=== PATIENT | male | born 1945 | race Caucasian/White ===

== ENCOUNTER 2016-10-16 14:39 | Emergency (ER) | payer OTHER, MEDICARE ==
[2016-10-16 14:46] VITALS: BP 121/62; PULSE 78; RESP 18; TEMP 98; O2SAT 97
--- NOTE | 2016-10-16 15:28 | EDPHY ---
H & P Time Seen by Provider: 10/16/16 14:56 HPI/ROS: CHIEF COMPLAINT: Finger infection HISTORY OF PRESENT ILLNESS: 71-year-old male reports that 7 days ago he broke a ceramic plate into several large pieces. 1 of the pieces lacerated his left middle finger just at the DIP joint, on the radial aspect. Wound has been slowly healing, but the patient has also noted an area of surrounding erythema and slight swelling. No fevers. No red streaks noted. No discharge from the wound. No foreign body sensation according to the patient. He is concerned that it may be developing an infection and is not healing properly. No fever, chills, chest pain, shortness of breath, palpitations, vomiting, diarrhea, urinary complaints, headache, lightheadedness. REVIEW OF SYSTEMS: Aside from elements discussed in the HPI, a comprehensive 10-point review of systems was reviewed and is negative. PAST MEDICAL HISTORY: Patient denies any significant past medical history. SOCIAL HISTORY: . Nonsmoker. GENERAL APPEARANCE: Pleasant, alert, conversant. FOCUSED EXAM OF left hand: 2 mm healing laceration just distal to the DIP on the middle finger. 1 cm in diameter area of erythema and slight swelling. No fluctuance. No discharge noted. No lymphangitic streaks. No pain with range of motion at the DIP joint. Neurovascular exam: Good capillary refill, good distal two-point sensation. Smoking Status: Never smoked Constitutional: Initial Vital Signs Temperature (C) 36.6 C 10/16/16 14:42 Heart Rate 78 10/16/16 14:42 Respiratory Rate 18 10/16/16 14:42 Blood Pressure 121/62 H 10/16/16 14:42 O2 Sat (%) 97 10/16/16 14:42 O2 Delivery Mode Room Air Allergies/Adverse Reactions: acetaminophen [From Tylenol] Allergy (Verified 10/16/16 14:42) Home Medications: Medication Instructions Recorded Cephalexin [Keflex (RX)] 500 mg PO QID 7 Days 10/16/16 Medical Decision Making ED Course/Re-evaluation: 71-year-old gentleman with a laceration to his middle finger which occurred 7 days ago. The wound has been slowly healing. Under local anesthetic, the wound was opened with a #13 scapula No purulent discharge was obtained. Wound was dressed and patient was placed on Keflex. Differential Diagnosis: Differential diagnoses for the patient's symptom complex was considered including but not limited to wound infection, cellulitis, retained foreign body , deep space infection. Departure - Departure Disposition: Home, Routine, Self-Care Clinical Impression: Laceration Cellulitis Qualifiers: Site of cellulitis: extremity Site of cellulitis of extremity: finger Laterality: left Qualified Code(s): L03.012 - Cellulitis of left finger Condition: Good Instructions: Cellulitis (ED) Additional Instructions: Please take antibiotics as directed. Keflex 500 mg by mouth 4 times a day for 7 days. Soak the finger in water 2 to 3 times a day for the next 1-2days. Watch for signs of worsening infection including increased redness, swelling, pain, red streaks up the finger, fever, or other concerns. Referrals: MARISSA BAUER [Primary Care Provider] - As per Instructions Prescriptions: Cephalexin [Keflex (RX)] 500 mg PO QID 7 Days
== END 2016-10-16 15:35 | disposition home or self-care (01) ==
LOC: CED 14:39
PROC: 0H9GXZZ Drainage of Left Hand Skin, External Approach (ICD-10-PCS; principal; 2016-10-16)
DX: S61.213A Laceration without foreign body of left middle finger without damage to nail, initial encounter (principal); L03.012 Cellulitis of left finger; W45.8XXA Other foreign body or object entering through skin, initial encounter

== ENCOUNTER 2017-02-12 23:53 | Emergency (ER) | payer OTHER, MEDICARE ==
[2017-02-13] MEDS ORDERED: ASPIRIN 81 MG CHEWABLE TAB PO ONE (00:03)
[2017-02-13] MEDS ORDERED: NITROGLYCERIN 0.4 MG BTL SL ONE (00:04)
[2017-02-13] MEDS ORDERED: ASPIRIN 81 MG CHEWABLE TAB ONE (00:04)
--- NOTE | 2017-02-13 00:11 | CPEKG ---
Heart Rate: 83 RR Interval: 723 P-R Interval: 192 QRSD Interval: 96 QT Interval: 372 QTC Interval: 437 P [place]: -24 QRS [place]: -21 T Wave [place]: 69 EKG Severity - OTHERWISE NORMAL ECG - EKG Impression: SINUS RHYTHM EKG Impression: BORDERLINE LEFT AXIS DEVIATION Electronically Signed By: Samuel Engel 13-Feb-2017 04:48:27
[2017-02-13] MEDS ORDERED: HYOSCYAMINE SULFATE 0.125 MG TAB ONE (00:20)
[2017-02-13] MEDS ORDERED: MAG HYDROX/AL HYDROX/SIMETH 30 ML UDCUP ONE (00:20)
[2017-02-13] MEDS ORDERED: LIDOCAINE 2% VISCOUS 15 ML UDCUP ONE (00:21)
[2017-02-13] MEDS ORDERED: LIDOCAINE 2% VISCOUS 15 ML UDCUP PO ONE (00:22)
[2017-02-13] MEDS ORDERED: MAG HYDROX/AL HYDROX/SIMETH 30 ML UDCUP PO ONE (00:22)
[2017-02-13] MEDS ORDERED: HYOSCYAMINE SULFATE 0.125 MG TAB PO ONE (00:22)
--- NOTE | 2017-02-13 00:27 | EDPHY ---
H & P Stated Complaint: chest pain Time Seen by Provider: 02/13/17 00:04 HPI/ROS: CHIEF COMPLAINT: chest discomfort HISTORY OF PRESENT ILLNESS: 72-year-old male felt well until approximately 430 -5 o'clock this afternoon. He at that point developed a sharp discomfort that lasted for half an hour on the left scapula that was not related to breathing or movement. It subsided spontaneously. He has spent an hour this afternoon work in the [employer], without any exertional fatigue, pulling up some plants and using a wheelbarrow during which time he did not feel like he strained anything and felt well throughout it all. At 8:30 p.m. today he left local restaurant with a sense of discomfort in the mid chest that progressively became worse over the ensuing 4 hours. It was mild at 1st became moderately severe peaking 8/10 is now 4/10 at this point in time. It is localized to the mid sternum, does not radiate, is worse with taking a deep breath though does not bother his breathing per se as well as movement such as laying flat or twisting. Evidently getting undressed for the exam did not seem to aggravate him the discomfort was localized, did not radiate , and he did not have a chance taking aspirin prior to arrival. He describes as a tightness. Cardiac Risk Factors: DM: No HTN: No High Chol: No Smoking: No Family History: No Obesity: No SLE type illenss: No HIV: unknown PE/DVT risk factors Prior DVT/PE: No Immobilization: No Splint/Cast: No Surgery, recently: No Family history of hypercoaguable syndrome: No Unilateral leg swelling: No Obesity: No RF for Aortic Dissection: Hypertension No Known Aortic aneurysm No Bicuspid aortic Valve No Aortic Valve disease No Family Hx of aortic dieseae No Polycystic Kidney Disease No Collagen vascular disease No Aortic Regurg Murmur No Aortic instrumentation recent No Blunt trauma, recent No REVIEW OF SYSTEMS: Constitutional: No fever, no chills. Eyes: No discharge ENT: No sore throat. Cardiovascular: See above. Respiratory: No cough, shortness of breath, or wheezing. Gastrointestinal: No nausea vomiting or diarrhea. No abdominal pain. Genitourinary: No hematuria or frequency. Musculoskeletal: No back pain. Skin: No rashes. Neurological: No headache. 10 point ROS otherwise negative Source: Patient Exam Limitations: No limitations - Personal History Current Tetanus/Diphtheria Vaccine: Yes Current Tetanus Diphtheria and Acellular Pertussis (TDAP): Yes - Medical/Surgical History Hx Asthma: No Hx Chronic Respiratory Disease: No Hx Diabetes: No Hx Cardiac Disease: No Hx Renal Disease: No Hx Cirrhosis: No Hx Alcoholism: No Hx HIV/AIDS: No Hx Splenectomy or Spleen Trauma: No Other PMH: hernia/eye/colon sueg/ - Family History Significant Family History: Other (Father of leukemia, at 65. Mother age 80 of pulmonary disease) - Social History Smoking Status: Never smoked (Former pipe smoker) Alcohol Use: None Drug Use: None - Physical Exam Exam: General Appearance: Alert, no distress. Afebrile. Normal phonation. No respiratory distress. Eyes: Pupils equal and round no pallor or injection. No icterus ENT, Mouth: Mucous membranes moist. Pharynx without erythema or exudate. TM Clear. Neck: No adenopathy. Supple. No JVD. Trachea in midline. Respiratory: There are no retractions, lungs are clear to auscultation. Chest wall: Nontender to palpation. No crepitus. Not worse with twisting of the trunk shows side bending or direct palpation Cardiovascular: Regular rate and rhythm, no murmur Abdomen: Soft and nontender, no masses, bowel sounds normal. Femoral pulses equal. Neurological: Ox3. No motor weakness. Sensation intact. Gait nl. Skin: Warm and dry, no rashes. Musculoskeletal: No joint swelling. Extremities: No edema. Homans sign negative. No cords. Psychiatric: Normal affect. Patient is oriented X 3. There is no agitation Constitutional: Initial Vital Signs Heart Rate 84 02/12/17 23:57 Respiratory Rate 18 02/12/17 23:57 Blood Pressure 154/88 H 02/12/17 23:57 O2 Sat (%) 96 02/12/17 23:57 O2 Delivery Mode Room Air Allergies/Adverse Reactions: acetaminophen [From Tylenol] Allergy (Verified 10/16/16 14:42) Home Medications: Medication Instructions Recorded Aspirin [Aspirin 81mg (*)] 81 mg PO DAILY #30 tab 02/13/17 Ibuprofen [Motrin (*)] 800 mg PO TID #21 tab 02/13/17 Omeprazole [Prilosec 20 mg] 20 mg PO DAILY #7 capsule. 02/13/17 Medical Decision Making - Diagnostics EKG Interpretation: EKG: See trace master Heart rate 83 No rightward forces. Mild interventricular conduction delay Normal ST segments. No Q-waves Second EKG taken at 3:30 a.m.. See trace master Continues to show normal ST segments as well as T-wave. Sinus rhythm. Heart rate is 76. No ischemic changes. Imaging Results: Chest x-ray: Two view chest. Interpreted by [me, contemporaneously]. Films viewed by me on the PACS system. Normal mediastinum. Normal lung espinal. No effusions. Normal chest. Imaging: I viewed and interpreted images myself ED Course/Re-evaluation: Patient given 4 aspirin p.o. Given a GI cocktail consisting of hycosamine, lidocaine, Maalox. At that point the chest discomfort was gone except for when he took a moderate to large breath. He would still have at that point. Of note is that the left sub scapular pain that he had at 4:30 p.m. had not returned any point this evening or now D-dimer was negative Chest is negative, as my interpretation Cycling cardiac enzymes over 3 hours, some 7 hours after onset of symptoms, are stable and undetectable. His heart score is 3, thus, it is low risk chest pain. He and I have discussed the implications and the need for follow-up as well as return if he has worsening or new symptoms. In the meantime there is a strong musculoskeletal component to this thus he will be on ibuprofen 800 mg three times daily. Given his age will also recommend Prilosec 20 mg daily. Finally, he will be on 81 mg of aspirin. Close follow-up is recommended as well as calling for advice if he has any questions Differential Diagnosis: Differential diagnosis includes but is not limited to the following: ACS, myocardial infarction, aortic dissection, pneumothorax, pleurisy, pulmonary embolus, CHF, Pneumonia, bronchospasm, Asthma, anxiety, muscle strain. - Data Points Laboratory Results: Laboratory Results 02/13/17 00:18 02/13/17 00:18 Medications Given: Discontinued Medications Al Hydroxide/Mg Hydroxide (Maalox Susp) 30 ml PO ONCE ONE Stop: 02/13/17 00:23 Last Admin: 02/13/17 00:23 Dose: 30 ml Aspirin (Aspirin) 324 mg PO EDNOW ONE Stop: 02/13/17 00:04 Last Admin: 02/13/17 00:12 Dose: 324 mg Hyoscyamine Sulfate (Levsin, Hyomax-Sl) 0.25 mg PO ONCE ONE Stop: 02/13/17 00:23 Last Admin: 02/13/17 00:23 Dose: 0.25 mg Lidocaine (Lidocaine 2% Viscous) 15 ml PO ONCE ONE Stop: 02/13/17 00:23 Last Admin: 02/13/17 00:23 Dose: 15 ml Departure - Departure Disposition: Home, Routine, Self-Care Clinical Impression: Atypical chest pain Condition: Good Instructions: Ibuprofen (By mouth), Aspirin (By mouth), Omeprazole (By mouth), Chest Pain (ED) Additional Instructions: Follow-up is important. Your to Call your family physician Wednesday and ask for a follow-up appointment this next week. Your chance of this being a cardiac event is low. However it is important that you take it easy for the next week pending her visit with her family doctor. Nothing more strenuous than a flight of stairs or walking around the block with the family dog. You're not to do any lifting or gym workouts. Your to be on the following medications: Aspirin 81 mg daily Ibuprofen 200 OTC, 4 tabs mg 3 times a day, with food Prilosec 20 mg OTC daily Your given his prescriptions for the latter 2 in case this is cheaper, though [id number] products suffice Referrals: Patient,NotPresent [Primary Care Provider] - As per Instructions Prescriptions: Aspirin [Aspirin 81mg (*)] 81 mg PO DAILY #30 tab Ibuprofen [Motrin (*)] 800 mg PO TID #21 tab Omeprazole [Prilosec 20 mg] 20 mg PO DAILY #7 capsule.
[2017-02-13 00:41] LABS: ANION GAP 11 mEq/L (8-16); CALCIUM 9.4 mg/dL (8.5-10.4); CARBON DIOXIDE 26 mEq/l (22-31); CHLORIDE 103 mEq/L (97-110); CREATININE 0.9 mg/dL (0.7-1.3); GLOMERULAR FILTRATION RATE > 60; GLUCOSE 118 mg/dL (70-100); SODIUM 140 mEq/L (134-144)
[2017-02-13 00:44] LABS: % IMMATURE GRANULYOCYTES 0.6 % (0.0-1.1); ABSOLUTE IMMATURE GRANULOCYTES 0.06 10^3/uL (0.00-0.10); ADD DIFF? NO; ADD MORPH? NO; ADD SCAN? NO; ATYPICAL LYMPHOCYTE FLAG 0 (0-99); FRAGMENT RBC FLAG 0 (0-99); HEMATOCRIT 41.2 % (40.0-51.0); HEMOGLOBIN 14.8 g/dL (13.7-17.5); LEFT SHIFT FLG 0 (0-99); LIPEMIA HEMOLYSIS FLAG 90 (0-99); MEAN CELL HEMOGLOBIN 34.3 pg (27.9-34.1); MEAN CELL HEMOGLOBIN CONCENTR. 35.9 g/dL (32.4-36.7); MEAN CELL VOLUME 95.6 fL (81.5-99.8); MEAN PLATELET VOLUME 9.5 fL (8.7-11.7); PLATELET CLUMPS FLAG 0 (0-99); PLATELET COUNT 207 10^3/uL (150-400); RED BLOOD CELL COUNT 4.31 10^6/uL (4.40-6.38); RED CELL DISTRIBUTION WIDTH 12.9 % (11.5-15.2)
[2017-02-13 00:54] LABS: TROPONIN I < 0.012 ng/mL (0.000-0.034)
--- NOTE | 2017-02-13 03:38 | CPEKG ---
Heart Rate: 76 RR Interval: 789 P-R Interval: 212 QRSD Interval: 86 QT Interval: 368 QTC Interval: 414 P [place]: 5 QRS [place]: -19 T Wave [place]: 41 EKG Severity - OTHERWISE NORMAL ECG - EKG Impression: SINUS RHYTHM EKG Impression: BORDERLINE LEFT AXIS DEVIATION Electronically Signed By: Samuel Engel 13-Feb-2017 04:48:20
[2017-02-13 04:45] VITALS: BP 113/73; PULSE 84; RESP 18; TEMP 98.1; O2SAT 96
== END 2017-02-13 04:45 | disposition home or self-care (01) ==
LOC: CED 23:53
DX: R07.89 Other chest pain (principal); Z79.82 Long term (current) use of aspirin
CPT/HCPCS: 71020-PO; 80048-PO; 83880-PO; 84484-PO; 85025-PO; 85378-PO